=== PATIENT | female | born 1995 | race Caucasian/White ===

== ENCOUNTER 2019-11-02 10:43 | Emergency (ER) | payer OTHER ==
[~2019-11-02] VITALS: Ht 162.6 cm; Wt 83.9 kg
--- NOTE | 2019-11-02 10:54 | NUR ---
PT AMBULATED TO ER BED 05
[2019-11-02 11:04] VITALS: BP 142/84
--- NOTE | 2019-11-02 11:13 | NUR ---
24 Y/O FEMALE PRESENS WITH POSSIBLE BARTHLIONS CYST, SHE NOTICED ON SUNDAY. STATED SHE BEGAN "PLAYING" WITH [employer] AND HAD INTERCOURSE ON SUNDAY, IT BEGAN TO GET MORE PAINFUL AND MORE INFLAMED. PT IS 10/10 PAIN, DENIES TAKING ANY PAIN MEDICATION. STATES SHE WENT TO URGENT CARE YESTERDAY AND WAS GIVEN DOXYCYCLINE AND IBUPROFEN, BUT PAIN IS SEVERE SO PT CAME TO ER. DENIES ANY FEVER/ CHILLS, N/V/D. SKIN IN TACT. NO BLEEDING NOTED AT THIS TIME. NO PMH
--- NOTE | 2019-11-02 11:20 | NUR ---
I&D SET UP AT BED SIDE, AMANDA NOTIFIED
[2019-11-02] MEDS ORDERED: KETOROLAC 60 MG/2 ML VIAL IM ONE (11:35)
[2019-11-02] MEDS ORDERED: LIDOCAINE MPF 1% 10 MG/ML VIAL INJ ONE (11:35)
[2019-11-02 12:31] VITALS: BP 142/84
== END 2019-11-02 12:32 | disposition home or self-care (01) ==
LOC: MED 10:43
DX: N75.0 Cyst of Bartholin's gland (principal); F12.90 Cannabis use, unspecified, uncomplicated; Z88.1 Allergy status to other antibiotic agents; Z88.2 Allergy status to sulfonamides
CPT/HCPCS: 56420; 81002; 81025; 96372; 99284; J1885; J2001

== ENCOUNTER 2019-11-06 05:45 | Emergency (ER) | payer OTHER ==
[~2019-11-06] VITALS: Ht 157.5 cm; Wt 86.2 kg
[2019-11-06 05:50] VITALS: BP 130/57
--- NOTE | 2019-11-06 05:54 | NUR ---
PT TAKEN TO BED 7
--- NOTE | 2019-11-06 05:54 | NUR ---
24 Y/O FEMALE PRESENTED TO ED FOR FOLLOW UP FROM 11/02/19 ED VISIT C/O CYST ON LEFT LABIA. PT STATES IT WAS PACKED AND THE PACKING FELL OUT ONCE SHE CAME HOME FROM THE ED. PT STATES THE ERMD INSTRUCTED HER TO FOLLOW UP W/ US IN 2 - 3 DAYS. PT C/O PAIN 08/14, PT STATES ITS MORE OF A DISCOMFORT THAN PAIN. PT RESTING IN BED, LOCKED AND IN LOWEST POSITION, HOB ELEVATED , SIDE RAIL X1. PMH: NONE AX: SULFA, ERYTHROMYCIN
--- NOTE | 2019-11-06 06:09 | NUR ---
Dr. Bower examining patient.
[2019-11-06] MEDS ORDERED: KETOROLAC 60 MG/2 ML VIAL IM ONE (06:15)
[2019-11-06 06:35] VITALS: BP 130/57
== END 2019-11-06 06:35 | disposition home or self-care (01) ==
LOC: MED 05:45
DX: N75.1 Abscess of Bartholin's gland (principal); R11.10 Vomiting, unspecified; R03.0 Elevated blood-pressure reading, without diagnosis of hypertension; Z48.00 Encounter for change or removal of nonsurgical wound dressing; Z88.2 Allergy status to sulfonamides; Z88.1 Allergy status to other antibiotic agents
CPT/HCPCS: 96372; 99283; J1885